=== PATIENT | female | born 1985 | race Caucasian/White ===

== ENCOUNTER 2020-11-12 07:10 | Inpatient (IN) | payer OTHER ==
[~2020-11-12] VITALS: Ht 167.6 cm; Wt 122.5 kg
[~2020-11-12 07:10] MED LIST: PRENATAL VITAM1 EACH PO
--- NOTE | 2020-11-12 07:30 | NUR ---
BOTH NARES SWABBED FOR COVID-19 WITHOUT COMPLICAITON. SAMPLE TAKEN TO LAB.
--- NOTE | 2020-11-13 10:08 | OR ---
[facility] [address] [place], [place] [address] Signed DATE OF OPERATION: 11/12/2020 SURGEON: Gabino Rios MD The patient of Dr. Rios PREOPERATIVE DIAGNOSIS: Status post twin with retained placentas. POSTOPERATIVE DIAGNOSIS: Status post twin with retained placentas. PROCEDURE: manual removal of two placentas. SENIOR CLINICAL DATA MANAGER: Dr. Walker. ANESTHESIA: IV sedation. ESTIMATED BLOOD LOSS: 300 mL plus additional 700 mL between delivery and start of surgery. COMPLICATIONS: None. DRAINS: Colón to bladder. FINDINGS: The patient was status post vaginal delivery of twins with retained placentas and slowly increasing bleeding, so manual removal was necessary. The patient was given options for anesthesia and elected to have IV sedation by nurse resident care director, which was done. The patient was prepped and draped in usual sterile fashion. Colón catheter was already in place, so hand was carefully placed in the vagina through the cervix and up to the fundus where 1 placenta could be identified and was carefully from the lower uterine wall. This was placenta to baby A and this did come out easily. The placenta for baby B was a little more difficult and more towards the fundus. This was carefully and slowly from the uterine wall and then brought out. Both placentas were Electronically Signed By: GABINO RIOS MD 11/13/20 1008 PATIENT NAME: ZEINAB PORTER OPERATIVE REPORT DATE OF : 87 REPORT #: [id number] PHYSICIAN: GABINO RIOS MD PCP: NO PRIMARY CARE PHYSICIAN REPORT IS CONFIDENTIAL AND NOT TO BE RELEASED WITHOUT AUTHORIZATION [facility] [address] [facility] [place] [address] Signed examined and appeared to be intact, with no remaining parts in the uterine cavity. After delivery of both placentas, hand was placed back in the cavity and the entire cavity explored and only clots were removed and no placental tissue was palpable. At this point, cervix and vagina were examined. Bleeding was much less to minimal and uterus was firm. The patient received IV Pitocin during the procedure and will continue postop. The patient tolerated the procedure well, went to recovery room in good condition. Sponge and instrument counts were correct at the end of procedure. Gabino Rios MD MJB/MODL /[id number] Copies: ~ Electronically Signed By: GABINO RIOS MD 11/13/20 1008 PATIENT NAME: ZEINAB PORTER OPERATIVE REPORT DATE OF : 87 REPORT #: [id number] PHYSICIAN: GABINO RIOS MD PCP: NO PRIMARY CARE PHYSICIAN REPORT IS CONFIDENTIAL AND NOT TO BE RELEASED WITHOUT AUTHORIZATION
--- NOTE | 2020-11-13 13:08 | PR ---
[facility] [address] [facility] [place] [address] Signed PP Progress Notes Datetime Report Generated by CPN: 11/13/2020 13:08 SUBJECTIVE: [id number] Pain: Within Normal Limits Nausea/Vomiting: Denies Vital Signs: [id number] Vital Signs: Reviewed; Within Normal Limits Notable Details: PP Hgb/Hct = 8.2/24.6 Abdomen/Uterus: Normal Lochia: Normal Extremities: Normal IMPRESSION/PLAN/PROCEDURES: [id number] Impression: Normal Progression Other Impression: PP Anemia Plan: Continue Present Management Procedures: None Progress Notes: Doing well, without complaint Signing Physician: Scarlet Allen MD Copies: ~ *Electronically Signed* 11/13/20 1308 SCARLET ALLEN MD PATIENT NAME: ZEINAB PORTER PROGRESS NOTE DATE OF : 87 PHYSICIAN: SCARLET ALLEN MD RPT #: [id number] REPORT IS CONFIDENTIAL AND NOT TO BE RELEASED WITHOUT AUTHORIZATION
--- NOTE | 2020-11-14 08:27 | PR ---
[facility] [address] [place] [address] Signed PP Progress Notes Datetime Report Generated by CPN: 11/14/2020 08:27 SUBJECTIVE: [id number] Pain: Within Normal Limits Nausea/Vomiting: Denies Vital Signs: [id number] Vital Signs: Reviewed; Within Normal Limits Notable Details: PP Hgb/Hct = 8.2/24.6 Abdomen/Uterus: Normal Lochia: Normal Extremities: Normal IMPRESSION/PLAN/PROCEDURES: [id number] Impression: Normal Progression Other Impression: PP Anemia Plan: Discharge Procedures: None Progress Notes: Doing well, without complaint, no dizziness or weakness noted. Patient ready to go home. Signing Physician: Scarlet Allen MD Copies: ~ *Electronically Signed* 11/14/20826 SCARLET ALLEN MD PATIENT NAME: ZEINAB PORTER PROGRESS NOTE DATE OF : 87 PHYSICIAN: SCARLET ALLEN MD RPT #: [id number] REPORT IS CONFIDENTIAL AND NOT TO BE RELEASED WITHOUT AUTHORIZATION
== END 2020-11-14 14:45 | disposition home or self-care (01) | DRG 806 ==
LOC: FBCO 07:10 → FBC 07:20
PROVIDERS: ADMIT General Practice; ATTEND General Practice
PROC: 10D17Z9 Manual Extraction of Products of Conception, Retained, Via Natural or Artificial Opening (ICD-10-PCS; 2020-11-12)
PROC: 0HQ9XZZ Repair Perineum Skin, External Approach (ICD-10-PCS; 2020-11-12)
PROC: 10907ZC Drainage of Amniotic Fluid, Therapeutic from Products of Conception, Via Natural or Artificial Opening (ICD-10-PCS; 2020-11-12)
PROC: 10E0XZZ Delivery of Products of Conception, External Approach (ICD-10-PCS; principal; 2020-11-12 10:34)
DX: O76 Abnormality in fetal heart rate and rhythm complicating labor and delivery (principal); O72.2 Delayed and secondary postpartum hemorrhage; Z37.2 Twins, both liveborn; O90.81 Anemia of the puerperium; D64.9 Anemia, unspecified; O69.81X1 Labor and delivery complicated by cord around neck, without compression, fetus 1; Z20.822 Contact with and (suspected) exposure to COVID-19; O30.043 Twin pregnancy, dichorionic/diamniotic, third trimester; O70.0 First degree perineal laceration during delivery; Z3A.39 39 weeks gestation of pregnancy; Z87.891 Personal history of nicotine dependence
CPT/HCPCS: 00952; 85027; 85384; 85610; 85730; A9270; C9803; J2250; J2405; J2590; J3010; J7121; U0003

== ENCOUNTER 2022-07-28 11:56 | Emergency (ER) | payer OTHER ==
[~2022-07-28] VITALS: Ht 182.9 cm; Wt 124.3 kg
[2022-07-28] MEDS ORDERED: BACTRIM DS TAB1 EACH PO (13:34)
[2022-07-28] MEDS ORDERED: CENTANY30 GM TOP (13:34)
[2022-07-28 14:10] VITALS: BP 113/94
== END 2022-07-28 14:12 | disposition home or self-care (01) ==
LOC: ED 11:56
DX: L08.9 Local infection of the skin and subcutaneous tissue, unspecified (principal); S71.152D Open bite, left thigh, subsequent encounter; W54.0XXD Bitten by dog, subsequent encounter; Z87.891 Personal history of nicotine dependence
CPT/HCPCS: 36415; 80053; 83605; 85025; 87040; 99283